=== PATIENT | female | born 1930 | race Caucasian/White ===

== ENCOUNTER → 2017-04-20 | Outpatient (CLI) | payer MEDICARE, BC ==
[2017-04-20 08:35] LABS: ALT 24 U/L (9-52); AST 21 U/L (14-36); Alkaline Phosphatase 80 U/L (38-126); Anion Gap 8 mmol/L; Blood Urea Nitrogen 19 mg/dL (7-17); Calcium 9.3 mg/dL (8.4-10.2); Carbon Dioxide 27 mmol/L (22-30); Chloride 106 mmol/L (98-107); Cholesterol 212 mg/dL (<200); Glucose 89 mg/dL (74-99); HDL Cholesterol 63 mg/dL (40-60); Non-African American GFR(MDRD) >60 (>60 ml/min/1.73 sqM); Potassium 4.3 mmol/L (3.5-5.1); Sodium 141 mmol/L (137-145); Total Bilirubin 0.4 mg/dL (0.2-1.3); Total Protein 6.7 g/dL (6.3-8.2)
[2017-04-20 08:47] LABS: CH 30.7; CHCM 33.3; HCT 42.2 % (34.0-46.0); HDW 2.57; HGB 13.6 gm/dL (11.4-16.0); MCH 29.8 pg (25.0-35.0); MCHC 32.2 g/dL (31.0-37.0); MCV 92.7 fL (80.0-100.0); Mean Platelet Volume 8.7; RBC 4.56 m/uL (3.80-5.40); RDW 14.6 % (11.5-15.5); WBC 6.1 k/uL (3.8-10.6); WBC (Perox) 5.96
[2017-04-20 10:05] LABS: Add Differential Manual Differential
[2017-04-20 10:38] LABS: Nucleated Red Blood Cells 0 /100 WBC (0-0); Total Cells Counted 200
== END | disposition home or self-care (01) ==
LOC: LABWHC1 07:45
PROVIDERS: ATTEND Internal Medicine
DX: E78.2 Mixed hyperlipidemia (principal); I10 Essential (primary) hypertension
CPT/HCPCS: 36415; 80053; 80061; 85025

== ENCOUNTER 2018-02-25 11:09 | Observation (INO) | payer MEDICARE, BC ==
[2018-02-25 11:47] LABS: Basophils % (A) 1 %; Eosinophils # (A) 0.1 k/uL (0-0.7); Eosinophils % (A) 1 %; HCT 40.4 % (34.0-46.0); HGB 13.7 gm/dL (11.4-16.0); Lymphocytes # (A) 2.6 k/uL (1.0-4.8); Lymphocytes % (A) 32 %; MCH 30.3 pg (25.0-35.0); MCV 89.3 fL (80.0-100.0); Mean Platelet Volume 7.7; Monocytes # (A) 0.4 k/uL (0-1.0); Monocytes % (A) 5 %; Neutrophils # (A) 4.8 k/uL (1.3-7.7); Neutrophils % (A) 59 %; Platelet Count 226 k/uL (150-450); RBC 4.53 m/uL (3.80-5.40); WBC 8.1 k/uL (3.8-10.6)
[2018-02-25 11:59] LABS: Partial Thromboplastin Time 23.6 sec (22.0-30.0); Prothrombin Time 9.8 sec (9.0-12.0)
--- NOTE | 2018-02-25 12:06 | CT ---
EXAMINATION TYPE: CT brain wo con for TPA DATE OF EXAM: 02/25/2018 COMPARISON: 11/25/2015 INDICATION: Left sided weakness and blurred vision DLP: 1121 mGycm, Automated exposure control for dose reduction was used. CONTRAST: None CT of the brain is performed utilizing 3 mm thick sections through the posterior fossa and 3 mm thick sections through the remaining calvarium. Study is performed within 24 hours of arrival to the hosp [facility]. No abnormal hyperdensity is present to suggest an acute intracranial hemorrhage. No mass lesion is evident. No acute infarcts are evident. Periventricular white matter hypodensity is present to mild degree has the appearance of chronic white matter ischemic changes. This was present previously and is essentia lly stable. Ventricles and sulci are mild prominence for the patient age. Paranasal sinuses and mastoid air cells within the [id number] are clear. IMPRESSIONS: 1. Mild periventricular white matter ischemic type changes with age-related atrophy
[2018-02-25 12:11] LABS: Creatine Kinase 50 U/L (30-135)
--- NOTE | 2018-02-25 12:21 | XR ---
EXAMINATION TYPE: XR chest 2V DATE OF EXAM: 02/25/2018 COMPARISON: CXR from 11-25-2015. HISTORY: Weakness and SOB. TECHNIQUE: Frontal and lateral views of the chest are obtained. FINDINGS: There is chronic emphysematous change without focal air space opacity, pleural effusion, o r pneumothorax seen. The cardiac silhouette size is enlarged with atherosclerotic and slightly ectat ic descending aorta. The osseous structures are demineralized IMPRESSION: Chronic emphysematous change and cardiomegaly without acute pulmonary process.
[2018-02-25 12:25] LABS: Creatine Kinase MB 0.7 ng/mL (0.0-2.4); Troponin I <0.012 ng/mL (0.000-0.034)
--- NOTE | 2018-02-25 12:30 | ED ---
Neuro HPI - General Chief Complaint: Neuro Symptoms/Deficit Stated Complaint: Light headed-Poss TIA Time Seen by Provider: 02/25/18 11:18 Source: patient, RN notes reviewed Mode of arrival: wheelchair Limitations: no limitations - History of Present Illness Is the patient presenting with stroke symptoms?: No Initial Comments: This is a 87-year-old female with a history of hypertension hysterectomy cholecystectomy who presents with complaints of lightheadedness and left arm or leg weakness this morning. It occurred around 9 AM she has some slight blurriness in the left thigh which she believes is secondary to her lenses. When she removes her glasses that has resolved she states now she has no weakness to her left upper lower extremity no headaches neck pain or other symptoms at this time. She has no prior history of TIA or CVA which she is concerned she may have had one he does have a sister that from a stroke. No other modifying factors at this time no palpitations no chest pain. - Related Data Home Medications: Home Medications Medication Instructions Recorded Confirmed ALPRAZolam [ALPRAZolam] 0.5 mg PO HS 11/25/15 02/25/18 Gabapentin [Gabapentin] 300 mg PO HS 11/25/15 02/25/18 amLODIPine BESYLATE [Amlodipine 5 mg PO BID 11/25/15 02/25/18 Besylate] Aspirin 650 mg PO ONCE PRN 02/25/18 02/25/18 Aspirin EC [Ecotrin Low Dose] 81 mg PO DAILY 02/25/18 02/25/18 Calcium Carbonate [Calcium] 600 mg PO DAILY 02/25/18 02/25/18 Cetirizine HCl [Zyrtec] 10 mg PO HS 02/25/18 02/25/18 Ibuprofen [Motrin Ib] 400 mg PO HS 02/25/18 02/25/18 Multivitamins, Thera [Multivitamin 1 tab PO DAILY 02/25/18 02/25/18 (formulary)] Allergies/Adverse Reactions: Allergies Allergy/AdvReac Type Severity Reaction Status Date / Time latex Allergy Rash/Hives Verified 02/25/18 12:53 phenobarbital Allergy Unknown Verified 02/25/18 12:53 Sulfa (Sulfonamide Allergy Rash/Hives Verified 02/25/18 12:53 Antibiotics) Review of Systems ROS Statement: Those systems with pertinent positive or pertinent negative responses have been documented in the HPI. ROS Other: All systems not noted in ROS Statement are negative. General Exam - General Exam Comments Initial Comments: This is a well-developed well-nourished awake alert oriented history female Limitations: no limitations General appearance: alert, in no apparent distress Head exam: Present: atraumatic, normocephalic, normal inspection Eye exam: Present: normal appearance, PERRL, EOMI. Absent: scleral icterus, conjunctival injection, periorbital swelling ENT exam: Present: normal exam, mucous membranes moist Neck exam: Present: normal inspection. Absent: tenderness, meningismus, lymphadenopathy Respiratory exam: Present: normal lung sounds bilaterally, other (She does demonstrate some kyphosis). Absent: respiratory distress, wheezes, rales, rhonchi, stridor Cardiovascular Exam: Present: regular rate, normal rhythm, normal heart sounds. Absent: systolic murmur, diastolic murmur, rubs, gallop, clicks GI/Abdominal exam: Present: soft, normal bowel sounds. Absent: distended, tenderness, guarding, rebound, rigid Extremities exam: Present: normal inspection, full ROM, normal capillary refill. Absent: tenderness, pedal edema, joint swelling, calf tenderness Back exam: Present: normal inspection Neurological exam: Present: alert, oriented X3, CN II-XII intact Psychiatric exam: Present: normal affect, normal mood Skin exam: Present: warm, dry, intact, normal color. Absent: rash Stroke MDM - Lab Data Result diagrams: 02/25/18 11:34 02/25/18 11:34 Lab Results 02/25/18 02/25/18 02/25/18 Range/Units 11:34 11:34 11:34 WBC 8.1 (3.8-10.6) k/uL RBC 4.53 (3.80-5.40) m/uL Hgb 13.7 (11.4-16.0) gm/dL Hct 40.4 (34.0-46.0) % MCV 89.3 (80.0-100.0) fL MCH 30.3 (25.0-35.0) pg MCHC 34.0 (31.0-37.0) g/dL RDW 14.0 (11.5-15.5) % Plt Count 226 (150-450) k/uL Neutrophils % 59 % Lymphocytes % 32 % Monocytes % 5 % Eosinophils % 1 % Basophils % 1 % Neutrophils # 4.8 (1.3-7.7) k/uL Lymphocytes # 2.6 (1.0-4.8) k/uL Monocytes # 0.4 (0-1.0) k/uL Eosinophils # 0.1 (0-0.7) k/uL Basophils # 0.0 (0-0.2) k/uL PT (9.0-12.0) sec INR (<1.2) APTT (22.0-30.0) sec Sodium 139 (137-145) mmol/L Potassium 4.4 (3.5-5.1) mmol/L Chloride 103 (98-107) mmol/L Carbon Dioxide 26 (22-30) mmol/L Anion Gap 10 mmol/L BUN 23 H (7-17) mg/dL Creatinine 0.62 (0.52-1.04) mg/dL Est GFR (CKD-EPI)AfAm >90 (>60 ml/min/1.73 sqM) Est GFR (CKD-EPI)NonAf 80 (>60 ml/min/1.73 sqM) Glucose 95 (74-99) mg/dL Calcium 9.9 (8.4-10.2) mg/dL Total Bilirubin 0.4 (0.2-1.3) mg/dL AST 25 (14-36) U/L ALT 30 (9-52) U/L Alkaline Phosphatase 84 (38-126) U/L Total Creatine Kinase 50 (30-135) U/L CK-MB (CK-2) 0.7 (0.0-2.4) ng/mL CK-MB (CK-2) Rel Index 1.4 Troponin I <0.012 (0.000-0.034) ng/mL Total Protein 6.8 (6.3-8.2) g/dL Albumin 3.9 (3.5-5.0) g/dL Urine Color Urine Appearance (Clear) Urine pH (5.0-8.0) Ur Specific [place] (1.001-1.035) Urine Protein (Negative) Urine Glucose (UA) (Negative) Urine Ketones (Negative) Urine Blood (Negative) Urine Nitrite (Negative) Urine Bilirubin (Negative) Urine Urobilinogen (<2.0) mg/dL Ur Leukocyte Esterase (Negative) 02/25/18 02/25/18 Range/Units 11:34 12:33 WBC (3.8-10.6) k/uL RBC (3.80-5.40) m/uL Hgb (11.4-16.0) gm/dL Hct (34.0-46.0) % MCV (80.0-100.0) fL MCH (25.0-35.0) pg MCHC (31.0-37.0) g/dL RDW (11.5-15.5) % Plt Count (150-450) k/uL Neutrophils % % Lymphocytes % % Monocytes % % Eosinophils % % Basophils % % Neutrophils # (1.3-7.7) k/uL Lymphocytes # (1.0-4.8) k/uL Monocytes # (0-1.0) k/uL Eosinophils # (0-0.7) k/uL Basophils # (0-0.2) k/uL PT 9.8 (9.0-12.0) sec INR 1.0 (<1.2) APTT 23.6 (22.0-30.0) sec Sodium (137-145) mmol/L Potassium (3.5-5.1) mmol/L Chloride (98-107) mmol/L Carbon Dioxide (22-30) mmol/L Anion Gap mmol/L BUN (7-17) mg/dL Creatinine (0.52-1.04) mg/dL Est GFR (CKD-EPI)AfAm (>60 ml/min/1.73 sqM) Est GFR (CKD-EPI)NonAf (>60 ml/min/1.73 sqM) Glucose (74-99) mg/dL Calcium (8.4-10.2) mg/dL Total Bilirubin (0.2-1.3) mg/dL AST (14-36) U/L ALT (9-52) U/L Alkaline Phosphatase (38-126) U/L Total Creatine Kinase (30-135) U/L CK-MB (CK-2) (0.0-2.4) ng/mL CK-MB (CK-2) Rel Index Troponin I (0.000-0.034) ng/mL Total Protein (6.3-8.2) g/dL Albumin (3.5-5.0) g/dL Urine Color Light Yellow Urine Appearance Clear (Clear) Urine pH 6.5 (5.0-8.0) Ur Specific [place] 1.004 (1.001-1.035) Urine Protein Negative (Negative) Urine Glucose (UA) Negative (Negative) Urine Ketones Negative (Negative) Urine Blood Negative (Negative) Urine Nitrite Negative (Negative) Urine Bilirubin Negative (Negative) Urine Urobilinogen <2.0 (<2.0) mg/dL Ur Leukocyte Esterase Negative (Negative) - NIH Stroke Scale 1a. Level of Consciousness: (0) alert 1b. LOC Questions: (0) answers correctly 1c. LOC Commands: (0) performs tasks correctly 2. Best Gaze: (0) normal 3. Visual: (0) no visual loss 4. Facial Palsy: (0) normal symmetrical movement 5a. Motor Arm Left: (0) no drift 5b. Motor Arm Right: (0) no drift 6a. Motor Leg Left: (0) no drift 6b. Motor Leg Right: (0) no drift 7. Limb Ataxia: (0) absent 8. Sensory: (0) normal 9. Best Language: (0) no aphasia 10. Dysarthria: (0) normal 11. Extinction/Inattention: (0) no abnormality - Medical Decision Making Reevaluation patient finds that she is awake alert oriented 3 no new problems no new deficits. CAT scan shows no acute findings patient will be admitted for evaluation TIA. I did discuss case with Dr. Humphrey - EKG Data -: EKG Interpreted by Fl EKG shows normal: sinus rhythm (Sinus rhythm first-degree AV block rate was 73. Interval 2:30 QRS duration 128 QT since QTC of 460/458 nonspecific interventricular block poor R-wave progression) Past Medical History Past Medical History: Hypertension History of Any Multi-Drug Resistant Organisms: None Reported Past Surgical History: Cholecystectomy, Hysterectomy Past Psychological History: Anxiety Smoking Status: Never smoker Past Alcohol Use History: None Reported Past Drug Use History: None Reported Course Vital Signs 02/25/18 02/25/18 02/25/18 11:13 11:37 12:37 Temperature 97.9 F Pulse Rate 77 74 69 Respiratory 16 18 18 Rate Blood Pressure 147/77 152/75 143/69 O2 Sat by Pulse 94 L 96 97 Oximetry - Reevaluation(s) Reevaluation #1: 02/25/18 14:08 Reevaluation reveals no acute findings patient is resting comfortably no further symptoms. Disposition Clinical Impression: Transient cerebral ischemia Disposition: ADMITTED IP TO THIS HOSP Condition: Stable Referrals: Ryley Becker MD [Primary Care Provider] - 1-2 days
[2018-02-25 12:46] LABS: ALT 30 U/L (9-52); AST 25 U/L (14-36); Albumin 3.9 g/dL (3.5-5.0); Alkaline Phosphatase 84 U/L (38-126); Anion Gap 10 mmol/L; Blood Urea Nitrogen 23 mg/dL (7-17); Calcium 9.9 mg/dL (8.4-10.2); Carbon Dioxide 26 mmol/L (22-30); Chloride 103 mmol/L (98-107); Glucose 95 mg/dL (74-99); Potassium 4.4 mmol/L (3.5-5.1); Sodium 139 mmol/L (137-145); Total Bilirubin 0.4 mg/dL (0.2-1.3); Total Protein 6.8 g/dL (6.3-8.2)
[2018-02-25 12:48] LABS: Appearance,Urine Clear (Clear); Bilirubin,Urine Negative (Negative); Blood,Urine Negative (Negative); Color,Urine Light Yellow; Glucose,Urine (UA) Negative (Negative); Ketones,Urine Negative (Negative); Leukocyte Esterase,Urine Negative (Negative); Nitrite,Urine Negative (Negative); PH, Urine 6.5 (5.0-8.0); Protein,Urine Negative (Negative); Specific Gravity,Urine 1.004 (1.001-1.035); Urobilinogen,Urine <2.0 mg/dL (<2.0)
[2018-02-25] MEDS ORDERED: SODIUM CHLORIDE 0.9% 1,000 ML IV SCH (14:15)
--- NOTE | 2018-02-25 15:41 | P.HPIM ---
History of Present Illness H&P Date: 02/25/18 Chief Complaint: left arm and leg weakness Patient is an 87-year-old female with a history of high blood pressure , dyslipidemia (does not want to take cholesterol medicine), chronic low back pain secondary to herniated disks, and heart murmur who presented to the ER with complaints of left leg and arm weakness. In the ER she underwent an extensive evaluation. On arrival her blood pressure was 147/77. Laboratory analysis showed a slightly elevated BUN at 23. Chest x-ray was negative. Head CT showed showed mild periventricular white matter ischemic changes with age- related atrophy. She had taken 2 aspirins at home. By the time she arrived in the ER his symptoms have resolved completely. She was admitted for observation of a TIA. Patient seen and examined at bedside in the ER. 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 She then noticed left leg weakness and numbness. She tried to stand and then felt her left arm going numb with radiation under her armpit. She was able to walk over to her chair and sit down. She states it lasted between 3-5 minutes. She did not have any chest pain, palpitations, diaphoresis, or shortness. She has not had any recent illnesses such as cough, cold, fever, flu, diarrhea, nausea, or vomiting. She has chronic constipation which is unchanged. She denies doing anything unusual recently. She's had no changes in medications that she has not missed any doses of medications. 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 She still drives herself and is independent in all ADLs. She does use a walker when he is outside of the house. She has been having some dizziness when laying down at night this is been going on for several months. She feels as though the room is spinning when she is lying flat. She reports fatigue and is frustrated by getting older. Review of Systems Positives: + Left arm weakness, left arm numbness, left leg weakness, left leg numbness, dizziness Pertinent positives and negatives as discussed in HPI, a complete review of systems was performed and all other systems are negative. Past Medical History Past Medical History: Hyperlipidemia, Hypertension Additional Past Medical History / Comment(s): Spinal stenosis, herniated disc, scoliosis, heart murmur History of Any Multi-Drug Resistant Organisms: None Reported Past Surgical History: Cholecystectomy, Hysterectomy Additional Past Surgical History / Comment(s): Multiple lumpectomies Past Psychological History: Anxiety Smoking Status: Never smoker Past Alcohol Use History: None Reported Past Drug Use History: None Reported Additional History: Lives alone and uses a walker when outside the house, still working, still driving - Past Family History Father Additional Family Medical History / Comment(s): age 64 of walking pneumonia Mother Additional Family Medical History / Comment(s): Diead at age 34 in childbirth Sister(s) Family Medical History: CVA/TIA Medications and Allergies Home Medications Medication Instructions Recorded Confirmed Type ALPRAZolam [ALPRAZolam] 0.5 mg PO HS 11/25/15 02/25/18 History Gabapentin [Gabapentin] 300 mg PO HS 11/25/15 02/25/18 History amLODIPine BESYLATE [Amlodipine 5 mg PO BID 11/25/15 02/25/18 History Besylate] Aspirin 650 mg PO ONCE PRN 02/25/18 02/25/18 History Aspirin EC [Ecotrin Low Dose] 81 mg PO DAILY 02/25/18 02/25/18 History Calcium Carbonate [Calcium] 600 mg PO DAILY 02/25/18 02/25/18 History Cetirizine HCl [Zyrtec] 10 mg PO HS 02/25/18 02/25/18 History Ibuprofen [Motrin Ib] 400 mg PO HS 02/25/18 02/25/18 History Multivitamins, Thera [Multivitamin 1 tab PO DAILY 02/25/18 02/25/18 History (formulary)] Allergies Allergy/AdvReac Type Severity Reaction Status Date / Time latex Allergy Rash/Hives Verified 02/25/18 12:53 mold Allergy Itching Verified 02/25/18 15:24 phenobarbital Allergy Unknown Verified 02/25/18 12:53 Sulfa (Sulfonamide Allergy Rash/Hives Verified 02/25/18 12:53 Antibiotics) Physical Exam Osteopathic Statement: *. No significant issues noted on an osteopathic structural exam other than those noted in the History and Physical/Consult. Vitals: Vital Signs Temp Pulse Resp BP Pulse Ox 02/25/18 14:55 82 18 120/57 96 02/25/18 14:08 97.2 F L 71 18 148/68 97 02/25/18 12:37 69 18 143/69 97 02/25/18 11:37 74 18 152/75 96 02/25/18 11:13 97.9 F 77 16 147/77 94 L Intake and Output 02/25/18 02/25/18 02/25/18 06:59 14:59 22:59 Other: Weight 74.843 kg General: non toxic, no distress, appears younger than stated age, normal weight Derm: no unusual rashes/lesions no unusual ecchymoses, warm, dry Head: atraumatic, normocephalic, symmetric Eyes: EOMI, no lid lag, anicteric sclera, pupils equal round reactive to light ENT: Nose and ears atraumatic, no thrush, no pharyngeal erythema Neck: No thyromegaly, no cervical lymphadenopathy, trachea midline, supple Mouth: no lip lesion, mucus membranes moist Cardiovascular: S1S2 reg, no murmur, positive posterior tibial pulse bilateral, no edema, capillary refill less than 2 seconds Lungs: CTA bilateral, no rhonchi, no rales , no accessory muscle use Abdominal: soft, nontender to palpation, no guarding, no appreciable organomegaly, normal bowel sounds Ext: no gross muscle atrophy, muscle strength 5 out of 5 in all 4 extremities grossly, no contractures, ulnar deviation of finger Neuro: CN II-XI grossly intact, light touch intact all 4 extremities, finger to nose within normal limits, Psych: Alert, oriented, appropriate affect Results CBC & Chem 7: 02/25/18 11:34 02/25/18 11:34 Labs: Abnormal Lab Results - Last 24 Hours (Table) 02/25/18 Range/Units 11:34 BUN 23 H (7-17) mg/dL Thrombosis Risk Factor Assmnt - DVT/VTE Prophylaxis DVT/VTE Prophylaxis: Pharmacologic Prophylaxis ordered Assessment and Plan Assessment: TIA -Aspirin, statin -Telemetry, echo, carotid Dopplers -Check lipid profile -Neurology consultation -No MRI warranted at this time with complete resolution of symptoms -Consult PT/OT Hypertension, controlled -Continue home Norvasc Dyslipidemia -Does not want to be on statin medication -Await lipid profile Chronic low back pain with osteoarthritis - prn tylenol and motrin Patient is placed in observation status for full evaluation of TIA. Awaiting neurology consultation and further workup. If re-current symptoms may need MRI and greater stroke evaluation. Surrogate decision-maker: Son-Anthony CODE STATUS: Full, would not want to be kept alive on machines into long-term, would not want additional testing or life prolonging procedures if in a persistent vegetative state DVT prophylaxis: Lovenox Discussed with: Patient, ED physician Anticipated discharge place: Home A total of 55 minutes was spent on the care of this complex patient more than 50 % of the time was spent in counseling and care coordination.
--- NOTE | 2018-02-25 20:19 | US ---
EXAMINATION TYPE: US carotid duplex BILAT DATE OF EXAM: 02/25/2018 COMPARISON: NONE CLINICAL HISTORY: Stenosis. TIA EXAM MEASUREMENTS: RIGHT: Peak Systolic Velocity (PSV) cm/sec ----- Right CCA: 68.2 ----- Right ICA: 100.2 ----- Right ECA: 84.2 ICA/CCA ratio: 1.5 RIGHT: End Diastole cm/sec ----- Right CCA: 14.4 ----- Right ICA: 28.9 ----- Right ECA: 4.2 LEFT: Peak Systolic Velocity (PSV) cm/sec ----- Left CCA: 59.4 ----- Left ICA: 100.4 ----- Left ECA: 206.5 ICA/CCA ratio: 1.7 LEFT: End Diastole cm/sec ----- Left CCA: 9.1 ----- Left ICA: 19.7 ----- Left ECA: 13.7 VERTEBRALS (direction of flow): Right Vertebral: Antegrade Left Vertebral: Antegrade Rhythm: Normal Bilateral plaque visualized. Elevate left ECA velocities. No significant stenosis seen IMPRESSION: There is antegrade flow in the vertebral arteries. The images and measurements suggest 2 5-50 % stenosis in both internal carotid arteries. Criteria for Assigning % of Stenosis / Diameter reduction (Estimation based on the indirect measurements of the internal carotid artery velocities (ICA PSV). 1. Normal (no stenosis)=ICA PSV < 125 cm/s: ratio < 2.0: ICA EDV<40 cm/s. 2. Less than 50% stenosis=ICA PSV < 125 cm/s: ratio < 2.0: ICA EDV<40 cm/s. 3. 50 to 69% stenosis=ICA PSV of 125 to 230 cm/s: ration 2.0 ? 4.0: ICA EDV 40-100 cm/s. 4. Greater than 70% stenosis to near occlusion= ICA PSV > 230 cm/s: ratio > 4.0: ICA EDV > 100 cm/s. 5. Near occlusion= ICA PSV velocities may be low or undetectable: variable ratio and ICA EDV. 6. Total occlusion=unable to detect flow.
[2018-02-25] MEDS ORDERED: IBUPROFEN 400 MG TAB PO SCH (21:00)
[2018-02-25] MEDS ORDERED: ALPRAZolam 0.5 MG TAB PO SCH (21:00)
[2018-02-25] MEDS ORDERED: GABAPENTIN 300 MG CAP PO SCH (21:00)
[2018-02-25] MEDS ORDERED: LORATADINE 10 MG TAB PO SCH (21:00)
[2018-02-25] MEDS: ATORVASTATIN 20 MG TAB PO SCH ×2 (22:58→23:01)
[2018-02-25] MEDS: amLODIPine 5 MG TAB PO SCH (23:01)
[2018-02-26 03:23] LABS: Cholesterol 239 mg/dL (<200); HDL Cholesterol 65 mg/dL (40-60); LDL Cholesterol,Calculated 141 mg/dL (0-99); Triglycerides 167 mg/dL (<150)
[2018-02-26] MEDS ORDERED: CALCIUM CARB-VIT D 500MG-200UN 1 EACH TAB PO SCH (09:00)
[2018-02-26] MEDS: amLODIPine 5 MG TAB PO SCH (09:04)
[2018-02-26 09:14] VITALS: RESP 16
--- NOTE | 2018-02-26 10:19 | ECHOF ---
Referral Reason:Thrombus, murmur MEASUREMENTS -------- HEIGHT: 127.0 cm WEIGHT: 74.8 kg BP: RVIDd: 2.3 cm (< 3.3) IVSd: 1.2 cm (0.6 - 1.1) LVIDd: 3.9 cm (3.9 - 5.3) LVPWd: 1.1 cm (0.6 - 1.1) IVSs: 1.7 cm LVIDs: 2.7 cm LVPWs: 1.1 cm LA Diam: 4.8 cm (2.7 - 3.8) LAESV Index (A-L): 46.00 ml/m Ao Diam: 3.1 cm (2.0 - 3.7) AV Cusp: 1.2 cm (1.5 - 2.6) MV E Donal: 1.02 m/s MV DecT: 316 ms MV A Donal: 1.31 m/s MV E/A Ratio: 0.78 AV maxP.68 mmHg AV meanP.35 mmHg AR PHT: 674 ms RAP: 5.00 mmHg RVSP: 33.18 mmHg FINDINGS -------- Sinus rhythm with extra systolic beats. This was a technically adequate study. The left ventricular size is normal. There is mild concentric left ventricular hypertrophy. Overa ll left ventricular systolic function is low-normal with, an EF between 50 - 55 %. The right ventricle is normal in size. The left atrium is markedly dilated. LA is severely dilated >40 ml/m2 The right atrial size is normal. There is mild aortic regurgitation. There is moderate aortic stenosis present. Peak/mean gradient across the Aortic Valve is 45.68mmHg / 24.35mmHg. The mitral valve leaflets are mildly thickened. Mild mitral annular calcification present. Mild-t o-moderate mitral regurgitation is present. Mild tricuspid regurgitation present. Right ventricular systolic pressure is normal at < 35 mmHg. There is no evidence of pulmonary hypertension. There is no pulmonic regurgitation present. The aortic root size is normal. There is no pericardial effusion. CONCLUSIONS -------- 1. The left ventricular size is normal. 2. There is mild concentric left ventricular hypertrophy. 3. Overall left ventricular systolic function is low-normal with, an EF between 50 - 55 %. 4. The right ventricle is normal in size. 5. The left atrium is markedly dilated. 6. LA is severely dilated >40 ml/m2 7. The right atrial size is normal. 8. There is mild aortic regurgitation. 9. There is moderate aortic stenosis present. 10. Peak/mean gradient across the Aortic Valve is 45.68mmHg / 24.35mmHg. 11. The mitral valve leaflets are mildly thickened. 12. Mild mitral annular calcification present. 13. [id number] mitral regurgitation is present. 14. Mild tricuspid regurgitation present. 15. Right ventricular systolic pressure is normal at < 35 mmHg. 16. There is no evidence of pulmonary hypertension. 17. There is no pulmonic regurgitation present. 18. The aortic root size is normal. 19. There is no pericardial effusion. EXECUTIVE CHAIRMAN: Barby Brennan RDCS
[2018-02-26] MEDS ORDERED: MULTIVITAMINS, THERA 1 EACH TAB PO SCH (12:00)
[2018-02-26] MEDS ORDERED: ASPIRIN 325 MG TAB PO SCH (12:00)
[2018-02-26 13:07] VITALS: BP 105/58; PULSE 68; TEMP 97.7
--- NOTE | 2018-02-26 13:54 | P.DS ---
Providers Date of admission: 02/25/18 14:09 Expected date of discharge: 02/26/18 Attending physician: Sachi Scott MD Consults: 02/25/18 14:10 Consult Physician Routine Consulting Provider: Aguilar Heredia Consult Reason/Comments: TIA Do you want consulting provider notified?: Yes Primary care physician: Ryley Becker - Discharge Diagnosis(es) (1) Transient cerebral ischemia Current Visit: Yes Status: Acute (2) HTN (hypertension) Current Visit: Yes Status: Acute (3) HLD (hyperlipidemia) Current Visit: Yes Status: Acute (4) Chronic low back pain Current Visit: Yes Status: Acute Hospital Course: Patient is an 87-year-old female with a history of high blood pressure , dyslipidemia (does not want to take cholesterol medicine), chronic low back pain secondary to herniated disks, and heart murmur who presented to the ER with complaints of left leg and arm weakness. In the ER she underwent an extensive evaluation. On arrival her blood pressure was 147/77. Laboratory analysis showed a slightly elevated BUN at 23. Chest x-ray was negative. Head CT showed showed mild periventricular white matter ischemic changes with age- related atrophy. She had taken 2 aspirins at home. By the time she arrived in the ER her symptoms have resolved completely. She was admitted for observation of a TIA. She underwent a carotid Doppler which showed bilateral 20-50% internal carotid artery stenosis. Echocardiogram showed moderate aortic stenosis and severely dilated left atrium. Telemetry did not show any evidence of atrial fibrillation. Her total cholesterol is 239. Discussed with patient she was not willing to take a statin medication at this point in time secondary to intolerance previously. We also discussed her continued dizziness. She has seen Dr. Moss in the past she is not willing to come off her Neurontin or Xanax as she was unable to sleep and states that "is worse than ". She is seen by physical therapy and was not found to have any significant deficits. They did not recommend home health for continued management at this point in time. She was determined stable for discharge home. We discussed the importance of her see a lay ups assembler with her nonspecific intraventricular conduction delay on EKG, moderate aortic stenosis, and severely dilated left atrium. We felt this could safely be completed as an outpatient. She'll follow up with Dr. Beckernext week. She will follow up with Dr. Valentin in 2-4 weeks. Patient seen and examined at bedside. No additional dizziness, lightheadedness , diaphoresis. No additional lower extremity weakness. No chest pain or shortness of breath. Conversation is outlined above. Vital signs reviewed and stable. General: non toxic, no distress, appears at stated age, kyphosis Derm: warm, dry Head: atraumatic, normocephalic, symmetric Eyes: EOMI, no lid lag, anicteric sclera Mouth: no lip lesion, mucus membranes moist Cardiovascular: S1S2 reg, no murmur, positive posterior tibial pulse bilateral, Lungs: CTA bilateral, no rhonchi, no rales , no accessory muscle use Abdominal: soft, nontender to palpation, no guarding, no appreciable organomegaly Ext: no gross muscle atrophy, no edema, no contractures, ulnar deviation of phalanges Neuro: CN II-XI grossly intact, no focal neuro deficits Psych: Alert, oriented, appropriate affect A total of 20 minutes of time were spent preparing this complex discharge summary . Pertinent Studies: Echocardiogram-ejection fraction 50-55%, severe left atrial enlargement, moderate aortic stenosis Carotid Doppler-bilateral internal carotid stenosis 20-50% Head CT-no acute process, mild small vessel ischemic changes and age-related atrophy Patient Condition at Discharge: Stable Plan - Discharge Summary Discharge Rx Participant: No New Discharge Prescriptions: Continue amLODIPine BESYLATE [Amlodipine Besylate] 5 mg PO BID Gabapentin 300 mg PO HS ALPRAZolam 0.5 mg PO HS Ibuprofen [Motrin Ib] 400 mg PO HS Cetirizine HCl [Zyrtec] 10 mg PO HS Multivitamins, Thera [Multivitamin (formulary)] 1 tab PO DAILY Calcium Carbonate [Calcium] 600 mg PO DAILY Aspirin EC [Ecotrin Low Dose] 81 mg PO DAILY Aspirin 650 mg PO ONCE PRN PRN Reason: STROKE SYMPTOMS Discharge Medication List ALPRAZolam 0.5 mg PO HS 11/25/15 [History] Gabapentin 300 mg PO HS 11/25/15 [History] amLODIPine BESYLATE [Amlodipine Besylate] 5 mg PO BID 11/25/15 [History] Aspirin 650 mg PO ONCE PRN 02/25/18 [History] Aspirin EC [Ecotrin Low Dose] 81 mg PO DAILY 02/25/18 [History] Calcium Carbonate [Calcium] 600 mg PO DAILY 02/25/18 [History] Cetirizine HCl [Zyrtec] 10 mg PO HS 02/25/18 [History] Ibuprofen [Motrin Ib] 400 mg PO HS 02/25/18 [History] Multivitamins, Thera [Multivitamin (formulary)] 1 tab PO DAILY 02/25/18 [History ] Follow up Appointment(s)/Referral(s): Ryley Becker MD [Primary Care Provider] - 1-2 days Jonah Valentin MD [STAFF PHYSICIAN] - 1 Week Activity/Diet/Wound Care/Special Instructions: heart healthy diet, activity as tolerated Discharge Disposition: HOME SELF-CARE
== END 2018-02-26 15:32 | disposition home or self-care (01) ==
LOC: EC 11:09 → 6SEL 14:09
PROVIDERS: ADMIT Internal Medicine; ATTEND Internal Medicine
DX: G45.9 Transient cerebral ischemic attack, unspecified (principal); R29.700 NIHSS score 0; I10 Essential (primary) hypertension; E78.5 Hyperlipidemia, unspecified; G89.29 Other chronic pain; M54.5 Low back pain; I65.29 Occlusion and stenosis of unspecified carotid artery; M41.9 Scoliosis, unspecified; F41.9 Anxiety disorder, unspecified; K59.09 Other constipation; I35.0 Nonrheumatic aortic (valve) stenosis; Z90.710 Acquired absence of both cervix and uterus; Z90.49 Acquired absence of other specified parts of digestive tract; Z60.2 Problems related to living alone
CPT/HCPCS: 99285; 36415; 93005; 93306; 97161; 92523; 80061; 80053; 82550; 82553; 84484; 85025; 85610; 85730; 81003; 71046; 93880; 70450; G0378 ×2